=== PATIENT | male | born 1945 | race Caucasian/White ===

== ENCOUNTER 2021-10-19 02:52 | Inpatient (IN) | payer MEDICARE ==
[~2021-10-19] VITALS: Ht 172.7 cm; Wt 148.8 kg
[2021-10-19] VITALS (11 sets, daily range): BP systolic 111–151; BP diastolic 56–89; O2SAT 90–96
[2021-10-19 03:43] LABS: BASO % 0.2 % (0.0-1.0); EOS % 0.1 % (0.0-3.0); HEMATOCRIT 47.3 % (42.0-52.0); HEMOGLOBIN 15.4 g/dl (13.5-17.5); LYMPH # 1.8 10^3/uL (1.5-5.0); LYMPH % 9.9 % (24.0-44.0); MEAN CORPUSCULAR HEMOGLOBIN 29.4 pg (27.0-33.0); MEAN CORPUSCULAR HGB CONC 32.6 g/dl (32.0-36.5); MEAN CORPUSCULAR VOLUME 90.3 fl (80.0-96.0); MONO # 0.6 10^3/uL (0.0-0.8); MONO % 3.6 % (2.0-8.0); NEUTROPHILS # 15.2 10^3/uL (1.5-8.5); NEUTROPHILS % 85.7 % (36.0-66.0); PLATELET COUNT, AUTOMATED 183 10^3/uL (150-450); RED BLOOD COUNT 5.24 10^6/uL (4.30-6.10); WHITE BLOOD COUNT 17.8 10^3/uL (4.0-10.0)
[2021-10-19] MEDS ORDERED: MECLIZINE 25 MG TABLET PO ONE (04:05)
[2021-10-19] MEDS ORDERED: ONDANSETRON 4MG 2ML VIAL IV ONE (04:05)
[2021-10-19 04:12] LABS: CK-MB VALUE MASS 1.2 NG/ML (<3.6); MB/CK RELATIVE INDEX 3.08 (< OR =4)
[2021-10-19 04:20] LABS: ALBUMIN 3.4 GM/DL (3.2-5.2); ALT/SGPT 35 U/L (12-78); BILIRUBIN,DIRECT 0.2 MG/DL (0.0-0.2); BILIRUBIN,TOTAL 0.4 MG/DL (0.2-1.0); BLOOD UREA NITROGEN 11 MG/DL (7-18); CALCIUM LEVEL 8.9 MG/DL (8.8-10.2); CARBON DIOXIDE LEVEL 24 MEQ/L (21-32); CHLORIDE LEVEL 107 MEQ/L (98-107); GLOMERULAR FILTRATION RATE > 60.0 (>42); GLUCOSE, FASTING 223 MG/DL (70-100); POTASSIUM SERUM 4.5 MEQ/L (3.5-5.1); SODIUM LEVEL 138 MEQ/L (136-145); TOTAL PROTEIN 6.4 GM/DL (6.4-8.2)
[2021-10-19 05:13] LABS: NT-PRO BNP 42 PG/ML (<450)
[2021-10-19] MEDS ORDERED: ISOVUE-370 76% 100ML VIAL As Ordered ONE (05:47)
[2021-10-19] MEDS ORDERED: FISH1000 PO (06:44)
[2021-10-19] MEDS ORDERED: BUDE10.7 INH (06:44)
[2021-10-19] MEDS ORDERED: ALBU8.5H INH (06:44)
[2021-10-19] MEDS ORDERED: HOME MED LIST COMPLETE! XX SCH (06:45)
[2021-10-19] MEDS ORDERED: CLOPIDOGREL 300 MG TAB (PLAVIX) PO STA (06:47)
[2021-10-19] MEDS ORDERED: ASPIRIN 81 MG CHEW TABLET PO ONE (06:50)
[2021-10-19 07:41] LABS: RBC, URINE 0-1 /hpf (0-3); SQUAMOUS EPITHELIAL CELL URINE SMALL AMOUNT /hpf (SMALL AMT)
[2021-10-19 07:42] LABS: BACTERIA, URINE SMALL AMOUNT; HYALINE CAST, URINE NONE SEEN /lpf (0-1); MUCUS, URINE SMALL AMOUNT (NEGATIVE)
[2021-10-19 08:15] LABS: CHOLESTEROL LEVEL 181 MG/DL (<200); HDL CHOLESTEROL 55 MG/DL (>40); LDL CHOLESTEROL 110 MG/DL (<100); NON-HDL-C 126 MG/DL; TRIGLYCERIDES LEVEL 80 MG/DL (<150)
[2021-10-19] MEDS ORDERED: LORazepam 2 MG/ML VIAL IV STA (09:09)
[2021-10-19] MEDS ORDERED: LORazepam 1 MG TAB PO ONE (09:10)
[2021-10-19] MEDS ORDERED: LORazepam 2 MG TAB PO ONE (10:30)
[2021-10-19] MEDS ORDERED: NS 1,000 ML IV ONE (14:55)
[2021-10-19] MEDS ORDERED: NS 1,000 ML IV SCH (19:40)
[2021-10-19] MEDS: ATORVASTATIN 20 MG TAB PO SCH (20:51)
[2021-10-19 21:03] LABS: BLOOD UREA NITROGEN 11 MG/DL (7-18); CALCIUM LEVEL 8.8 MG/DL (8.8-10.2); CARBON DIOXIDE LEVEL 30 MEQ/L (21-32); CHLORIDE LEVEL 108 MEQ/L (98-107); CREATININE FOR GFR 0.73 MG/DL (0.70-1.30); GLOMERULAR FILTRATION RATE > 60.0 (>42); GLUCOSE, FASTING 119 MG/DL (70-100); SODIUM LEVEL 143 MEQ/L (136-145)
[2021-10-19] MEDS: SODIUM CHLORIDE 3% 500 ML IV SCH (21:12)
[2021-10-20] VITALS (23 sets, daily range): BP systolic 129–208; BP diastolic 61–99
[2021-10-20 02:10] LABS: MEAN CORPUSCULAR HEMOGLOBIN 29.5 pg (27.0-33.0); MEAN CORPUSCULAR HGB CONC 31.9 g/dl (32.0-36.5); MEAN CORPUSCULAR VOLUME 92.5 fl (80.0-96.0); PLATELET COUNT, AUTOMATED 186 10^3/uL (150-450); RED BLOOD COUNT 4.54 10^6/uL (4.30-6.10)
[2021-10-20 02:24] LABS: HEMOGLOBIN 13.4 g/dl (13.5-17.5)
[2021-10-20 02:46] LABS: BLOOD UREA NITROGEN 12 MG/DL (7-18); CALCIUM LEVEL 8.7 MG/DL (8.8-10.2); CARBON DIOXIDE LEVEL 30 MEQ/L (21-32); CHLORIDE LEVEL 110 MEQ/L (98-107); CREATININE FOR GFR 0.83 MG/DL (0.70-1.30); GLOMERULAR FILTRATION RATE > 60.0 (>42); GLUCOSE, FASTING 122 MG/DL (70-100); POTASSIUM SERUM 3.7 MEQ/L (3.5-5.1); SODIUM LEVEL 143 MEQ/L (136-145)
[2021-10-20] MEDS: ASPIRIN 81MG ENTERIC TABLET PO SCH (08:35)
[2021-10-20] MEDS: CLOPIDOGREL 75 MG TAB PO SCH (08:35)
[2021-10-20 09:00] LABS: BLOOD UREA NITROGEN 14 MG/DL (7-18); CALCIUM LEVEL 8.6 MG/DL (8.8-10.2); CARBON DIOXIDE LEVEL 23 MEQ/L (21-32); CHLORIDE LEVEL 112 MEQ/L (98-107); CREATININE FOR GFR 0.88 MG/DL (0.70-1.30); GLOMERULAR FILTRATION RATE > 60.0 (>42); GLUCOSE, FASTING 190 MG/DL (70-100); POTASSIUM SERUM 3.8 MEQ/L (3.5-5.1); SODIUM LEVEL 142 MEQ/L (136-145)
[2021-10-20] MEDS ORDERED: SENNA 8.6 MG TAB (SENOKOT) PO PRN (09:30)
[2021-10-20] MEDS ORDERED: DOCUSATE SODIUM 100MG CAPSULE PO PRN (09:30)
[2021-10-20] MEDS: SODIUM CHLORIDE 3% 500 ML IV SCH ×2 (09:35→18:02)
[2021-10-20 16:55] LABS: BLOOD UREA NITROGEN 15 MG/DL (7-18); CALCIUM LEVEL 8.3 MG/DL (8.8-10.2); CARBON DIOXIDE LEVEL 26 MEQ/L (21-32); CHLORIDE LEVEL 111 MEQ/L (98-107); CREATININE FOR GFR 0.86 MG/DL (0.70-1.30); GLOMERULAR FILTRATION RATE > 60.0 (>42); GLUCOSE, FASTING 109 MG/DL (70-100); POTASSIUM SERUM 4.1 MEQ/L (3.5-5.1); SODIUM LEVEL 141 MEQ/L (136-145)
[2021-10-20] MEDS: SYMBICORT 160/4.5MCG INHALER 6GM INH SCH (20:11)
[2021-10-20] MEDS: ATORVASTATIN 20 MG TAB PO SCH (21:24)
[2021-10-21] VITALS (26 sets, daily range): BP systolic 147–203; BP diastolic 64–97; O2SAT 93–95
[2021-10-21] MEDS: SODIUM CHLORIDE 3% 500 ML IV SCH ×4 (00:17→18:16)
[2021-10-21 01:56] LABS: HEMATOCRIT 42.5 % (42.0-52.0); HEMOGLOBIN 13.8 g/dl (13.5-17.5); MEAN CORPUSCULAR HEMOGLOBIN 29.6 pg (27.0-33.0); MEAN CORPUSCULAR HGB CONC 32.5 g/dl (32.0-36.5); PLATELET COUNT, AUTOMATED 169 10^3/uL (150-450); RED BLOOD COUNT 4.67 10^6/uL (4.30-6.10)
[2021-10-21 02:59] LABS: BLOOD UREA NITROGEN 12 MG/DL (7-18); CALCIUM LEVEL 8.2 MG/DL (8.8-10.2); CARBON DIOXIDE LEVEL 25 MEQ/L (21-32); CHLORIDE LEVEL 111 MEQ/L (98-107); CREATININE FOR GFR 0.73 MG/DL (0.70-1.30); GLOMERULAR FILTRATION RATE > 60.0 (>42); GLUCOSE, FASTING 129 MG/DL (70-100); POTASSIUM SERUM 3.6 MEQ/L (3.5-5.1); SODIUM LEVEL 140 MEQ/L (136-145)
[2021-10-21] MEDS: SYMBICORT 160/4.5MCG INHALER 6GM INH SCH ×2 (07:58→20:45)
[2021-10-21] MEDS: CLOPIDOGREL 75 MG TAB PO SCH (08:21)
[2021-10-21] MEDS: ASPIRIN 81MG ENTERIC TABLET PO SCH (08:21)
[2021-10-21 08:37] LABS: BLOOD UREA NITROGEN 10 MG/DL (7-18); CALCIUM LEVEL 8.3 MG/DL (8.8-10.2); CARBON DIOXIDE LEVEL 26 MEQ/L (21-32); CHLORIDE LEVEL 114 MEQ/L (98-107); GLOMERULAR FILTRATION RATE > 60.0 (>42); GLUCOSE, FASTING 135 MG/DL (70-100); POTASSIUM SERUM 3.9 MEQ/L (3.5-5.1); SODIUM LEVEL 142 MEQ/L (136-145)
[2021-10-21] MEDS ORDERED: ALBUTEROL 90 MCG/ACT 8GM HFA INHALER INH PRN (14:55)
[2021-10-21 14:59] LABS: BLOOD UREA NITROGEN 9 MG/DL (7-18); CALCIUM LEVEL 8.3 MG/DL (8.8-10.2); CARBON DIOXIDE LEVEL 25 MEQ/L (21-32); CHLORIDE LEVEL 113 MEQ/L (98-107); CREATININE FOR GFR 0.65 MG/DL (0.70-1.30); GLOMERULAR FILTRATION RATE > 60.0 (>42); GLUCOSE, FASTING 128 MG/DL (70-100); POTASSIUM SERUM 3.7 MEQ/L (3.5-5.1); SODIUM LEVEL 141 MEQ/L (136-145)
[2021-10-21] MEDS: **hydrALAZINE HCL** 25 MG TAB PO SCH ×2 (15:41→21:35)
[2021-10-21] MEDS ORDERED: hydrALAZINE 20MG/ML 1ML VIAL (J0360 PER 20MG) IV PRN (16:35)
[2021-10-21] MEDS: ENOXAPARIN 40MG/0.4ML SYRINGE (J1650 PER 10MG) SC SCH (17:02)
[2021-10-21 20:27] LABS: BLOOD UREA NITROGEN 8 MG/DL (7-18); CALCIUM LEVEL 8.4 MG/DL (8.8-10.2); CARBON DIOXIDE LEVEL 24 MEQ/L (21-32); CHLORIDE LEVEL 110 MEQ/L (98-107); CREATININE FOR GFR 0.67 MG/DL (0.70-1.30); GLOMERULAR FILTRATION RATE > 60.0 (>42); GLUCOSE, FASTING 178 MG/DL (70-100); POTASSIUM SERUM 3.5 MEQ/L (3.5-5.1); SODIUM LEVEL 137 MEQ/L (136-145)
[2021-10-21] MEDS: ATORVASTATIN 20 MG TAB PO SCH (21:34)
[2021-10-22] VITALS (19 sets, daily range): BP systolic 152–176; BP diastolic 65–80; O2SAT 92–96
[2021-10-22 03:33] LABS: HEMATOCRIT 42.8 % (42.0-52.0); HEMOGLOBIN 13.8 g/dl (13.5-17.5); MEAN CORPUSCULAR HEMOGLOBIN 28.8 pg (27.0-33.0); MEAN CORPUSCULAR HGB CONC 32.2 g/dl (32.0-36.5); MEAN CORPUSCULAR VOLUME 89.4 fl (80.0-96.0); PLATELET COUNT, AUTOMATED 160 10^3/uL (150-450); RED BLOOD COUNT 4.79 10^6/uL (4.30-6.10); WHITE BLOOD COUNT 11.4 10^3/uL (4.0-10.0)
[2021-10-22 04:02] LABS: BLOOD UREA NITROGEN 8 MG/DL (7-18); CALCIUM LEVEL 8.4 MG/DL (8.8-10.2); CARBON DIOXIDE LEVEL 27 MEQ/L (21-32); CHLORIDE LEVEL 111 MEQ/L (98-107); CREATININE FOR GFR 0.59 MG/DL (0.70-1.30); GLOMERULAR FILTRATION RATE > 60.0 (>42); GLUCOSE, FASTING 126 MG/DL (70-100); POTASSIUM SERUM 3.4 MEQ/L (3.5-5.1); SODIUM LEVEL 141 MEQ/L (136-145)
[2021-10-22] MEDS: **hydrALAZINE HCL** 25 MG TAB PO SCH ×3 (05:01→21:01)
[2021-10-22] MEDS: SODIUM CHLORIDE 3% 500 ML IV SCH (05:02)
[2021-10-22 07:54] LABS: BLOOD UREA NITROGEN 9 MG/DL (7-18); CALCIUM LEVEL 8.6 MG/DL (8.8-10.2); CARBON DIOXIDE LEVEL 24 MEQ/L (21-32); CHLORIDE LEVEL 112 MEQ/L (98-107); CREATININE FOR GFR 0.58 MG/DL (0.70-1.30); GLOMERULAR FILTRATION RATE > 60.0 (>42); GLUCOSE, FASTING 133 MG/DL (70-100); POTASSIUM SERUM 3.8 MEQ/L (3.5-5.1); SODIUM LEVEL 141 MEQ/L (136-145)
[2021-10-22] MEDS ORDERED: POTASSIUM CHLORIDE 10MEQ SR TABLET PO ONE (08:00)
[2021-10-22] MEDS: ASPIRIN 81MG ENTERIC TABLET PO SCH (08:12)
[2021-10-22] MEDS: CLOPIDOGREL 75 MG TAB PO SCH (08:12)
[2021-10-22] MEDS: ENOXAPARIN 40MG/0.4ML SYRINGE (J1650 PER 10MG) SC SCH (08:13)
[2021-10-22] MEDS: SYMBICORT 160/4.5MCG INHALER 6GM INH SCH ×2 (08:46→20:56)
[2021-10-22 14:52] LABS: BLOOD UREA NITROGEN 10 MG/DL (7-18); CALCIUM LEVEL 8.8 MG/DL (8.8-10.2); CARBON DIOXIDE LEVEL 24 MEQ/L (21-32); CHLORIDE LEVEL 110 MEQ/L (98-107); CREATININE FOR GFR 0.64 MG/DL (0.70-1.30); GLOMERULAR FILTRATION RATE > 60.0 (>42); GLUCOSE, FASTING 122 MG/DL (70-100); SODIUM LEVEL 139 MEQ/L (136-145)
[2021-10-22] MEDS ORDERED: MAALOX 30 ML SUSP *UDC PO PRN (18:35)
[2021-10-22 20:41] LABS: BLOOD UREA NITROGEN 11 MG/DL (7-18); CALCIUM LEVEL 8.8 MG/DL (8.8-10.2); CARBON DIOXIDE LEVEL 25 MEQ/L (21-32); CHLORIDE LEVEL 109 MEQ/L (98-107); CREATININE FOR GFR 0.67 MG/DL (0.70-1.30); GLOMERULAR FILTRATION RATE > 60.0 (>42); GLUCOSE, FASTING 143 MG/DL (70-100); POTASSIUM SERUM 3.9 MEQ/L (3.5-5.1); SODIUM LEVEL 137 MEQ/L (136-145)
[2021-10-22] MEDS: ATORVASTATIN 20 MG TAB PO SCH (21:01)
[2021-10-23] VITALS (11 sets, daily range): BP systolic 153–168; BP diastolic 68–76; O2SAT 93–96
[2021-10-23 03:19] LABS: HEMATOCRIT 42.7 % (42.0-52.0); HEMOGLOBIN 14.3 g/dl (13.5-17.5); MEAN CORPUSCULAR HEMOGLOBIN 29.9 pg (27.0-33.0); MEAN CORPUSCULAR HGB CONC 33.5 g/dl (32.0-36.5); MEAN CORPUSCULAR VOLUME 89.3 fl (80.0-96.0); PLATELET COUNT, AUTOMATED 168 10^3/uL (150-450); RED BLOOD COUNT 4.78 10^6/uL (4.30-6.10); WHITE BLOOD COUNT 14.6 10^3/uL (4.0-10.0)
[2021-10-23 03:39] LABS: HEMOGLOBIN A1c 6.8 %
[2021-10-23 04:11] LABS: BLOOD UREA NITROGEN 10 MG/DL (7-18); CALCIUM LEVEL 8.6 MG/DL (8.8-10.2); CARBON DIOXIDE LEVEL 24 MEQ/L (21-32); CHLORIDE LEVEL 109 MEQ/L (98-107); CREATININE FOR GFR 0.67 MG/DL (0.70-1.30); GLOMERULAR FILTRATION RATE > 60.0 (>42); GLUCOSE, FASTING 146 MG/DL (70-100); POTASSIUM SERUM 3.7 MEQ/L (3.5-5.1); SODIUM LEVEL 137 MEQ/L (136-145)
[2021-10-23] MEDS: **hydrALAZINE HCL** 25 MG TAB PO SCH ×2 (06:27→14:35)
[2021-10-23] MEDS: ENOXAPARIN 40MG/0.4ML SYRINGE (J1650 PER 10MG) SC SCH (08:35)
[2021-10-23] MEDS: ASPIRIN 81MG ENTERIC TABLET PO SCH (08:35)
[2021-10-23] MEDS: CLOPIDOGREL 75 MG TAB PO SCH (08:36)
[2021-10-23 09:25] LABS: BLOOD UREA NITROGEN 10 MG/DL (7-18); CALCIUM LEVEL 8.8 MG/DL (8.8-10.2); CARBON DIOXIDE LEVEL 20 MEQ/L (21-32); CHLORIDE LEVEL 109 MEQ/L (98-107); CREATININE FOR GFR 0.58 MG/DL (0.70-1.30); GLOMERULAR FILTRATION RATE > 60.0 (>42); GLUCOSE, FASTING 129 MG/DL (70-100); SODIUM LEVEL 136 MEQ/L (136-145)
[2021-10-23] MEDS: SYMBICORT 160/4.5MCG INHALER 6GM INH SCH (09:26)
[2021-10-23] MEDS ORDERED: LISI30TA4 PO (11:35)
[2021-10-23] MEDS ORDERED: CLOP75TA2 PO (11:35)
[2021-10-23] MEDS ORDERED: GLUC1TES2 XX (11:35)
[2021-10-23] MEDS ORDERED: BLOOKIT21 XX (11:35)
[2021-10-23] MEDS ORDERED: ALCOPAD25 TOP (11:35)
[2021-10-23] MEDS ORDERED: ATOR80TA59 PO (11:35)
[2021-10-23] MEDS ORDERED: LANC30MI XX (11:35)
[2021-10-23] MEDS ORDERED: ASPI-551 PO (11:35)
[2021-10-23] MEDS ORDERED: METF500T13 PO (11:35)
[2021-10-23] MEDS ORDERED: BLOOKIT XX (14:15)
[2021-10-23 14:18] LABS: BLOOD UREA NITROGEN 8 MG/DL (7-18); CALCIUM LEVEL 8.9 MG/DL (8.8-10.2); CARBON DIOXIDE LEVEL 27 MEQ/L (21-32); CHLORIDE LEVEL 110 MEQ/L (98-107); CREATININE FOR GFR 0.65 MG/DL (0.70-1.30); GLOMERULAR FILTRATION RATE > 60.0 (>42); GLUCOSE, FASTING 126 MG/DL (70-100); POTASSIUM SERUM 3.8 MEQ/L (3.5-5.1); SODIUM LEVEL 139 MEQ/L (136-145)
[2021-10-23] MEDS ORDERED: LISI40TA4 PO (16:53)
== END 2021-10-23 15:25 | disposition home or self-care (01) | DRG 65 ==
LOC: EDBD 02:52 → M ED 02:52 → M ED INP 07:44 → ENRESERV 11:59 → M PCU 14:07 → M ICU 20:39 → M PCU 10-21 17:18
PROVIDERS: ADMIT General Practice; ATTEND Internal Medicine
DX: I63.233 Cerebral infarction due to unspecified occlusion or stenosis of bilateral carotid arteries (principal); I16.9 Hypertensive crisis, unspecified; Z68.42 Body mass index [BMI] 45.0-49.9, adult; N39.0 Urinary tract infection, site not specified; I50.30 Unspecified diastolic (congestive) heart failure; J44.9 Chronic obstructive pulmonary disease, unspecified; E04.1 Nontoxic single thyroid nodule; E66.01 Morbid (severe) obesity due to excess calories; I11.0 Hypertensive heart disease with heart failure; E78.5 Hyperlipidemia, unspecified; I65.23 Occlusion and stenosis of bilateral carotid arteries; Z87.891 Personal history of nicotine dependence; Z79.899 Other long term (current) drug therapy; Z79.82 Long term (current) use of aspirin; Z98.42 Cataract extraction status, left eye